=== PATIENT | male | born 1975 | race Caucasian/White ===

== ENCOUNTER 2021-02-19 19:04 | Emergency (ER) | payer OTHER ==
[~2021-02-19] VITALS: Ht 185.4 cm; Wt 104.3 kg
--- NOTE | 2021-02-19 21:00 | NUR ---
pt came in c/o nose pain with redness and swelling.
[2021-02-19] MEDS ORDERED: IBUP-1953 PO (23:28)
[2021-02-19] MEDS ORDERED: AMOX-430 PO (23:29)
[2021-02-19 23:53] VITALS: BP 119/68
--- NOTE | 2021-02-19 23:53 | NUR ---
Patient discharged to home in stable condition. Written and verbal after care instructions given. Patient verbalizes understanding of instruction.
== END 2021-02-19 23:54 | disposition home or self-care (01) ==
LOC: ER 19:11
DX: S02.2XXA Fracture of nasal bones, initial encounter for closed fracture (principal); W22.8XXA Striking against or struck by other objects, initial encounter; Y93.89 Activity, other specified; Y92.89 Other specified places as the place of occurrence of the external cause; Y99.8 Other external cause status
CPT/HCPCS: 70140-TC